=== PATIENT | female | born 1970 | race Caucasian/White ===

== ENCOUNTER 2021-09-17 11:27 | Emergency (ER) | payer SELFPAY ==
[~2021-09-17] VITALS: Ht 157.5 cm; Wt 85.0 kg
[2021-09-17 12:26] LABS: BASOPHILS % 0.9 % (0.0-2.0); HEMATOCRIT. 45.4 % (36.0-48.0); HEMOGLOBIN. 15.4 g/dL (12.0-16.0); LYMPHOCYTES % 24.7 % (20.0-50.0); MEAN CORPUSCULAR HEMOGLOBIN 27.8 pg (28.0-32.0); MEAN CORPUSCULAR VOLUME 82.1 fL (81.0-99.0); MEAN PLATELET VOLUME 10.8 fl (7.4-10.4); MONOCYTES % 5.5 % (2.0-8.0); NEUTROPHILS % 67.9 % (40.0-76.0); PLATELET 196 x1000/uL (130-400); RED BLOOD CELL COUNT 5.53 mill/uL (4.2-5.4); RED CELL DISTRIBUTION WIDTH 13.8 % (11.6-14.6)
[2021-09-17 12:32] LABS: CHLORIDE 108 mEq/L (98-107)
[2021-09-17 12:53] LABS: HCG SCREEN NEGATIVE
[2021-09-17 17:59] VITALS: BP 118/80
== END 2021-09-17 18:02 | disposition home or self-care (01) ==
LOC: ER 11:45
DX: R51.9 Headache, unspecified (principal); R20.0 Anesthesia of skin
CPT/HCPCS: 36415; 70551; 80048; 84703; 85025; 93005; 99285